=== PATIENT | male | born 1960 | race Asian ===

== ENCOUNTER 2022-12-27 18:14 | Inpatient (IN) | payer MEDICAID ==
[~2022-12-27] VITALS: Ht 175.3 cm; Wt 81.8 kg
[2022-12-27 18:14] VITALS: BP_SYST 167
--- NOTE | 2022-12-27 18:14 | NUR ---
BROUGHT IN BY [facility] AND PLACED IN BED #3, REPORT GIVEN TO OSMANI
--- NOTE | 2022-12-27 18:16 | NUR ---
Patient to ER bed 03 to gown for evaluation. Side rails up.
--- NOTE | 2022-12-27 18:18 | NUR ---
Pt brought by self , A&Ox4,pt presents to ER with headache, chest wall pain and high blood pressure, pt states he has been sick for one month, skin pink and warm, cap refill <3, VSS, respirations even and unlabored,will cont to monitor.
[2022-12-27] MEDS ORDERED: NITROGLYCERIN 1 INCH (GM) OINT. TP ONE (18:30)
[2022-12-27] MEDS ORDERED: LABETALOL HCL 20 MG/4 ML CARTRIDGE IVP ONE (18:30)
[2022-12-27 19:11] LABS: BASOPHILS % (AUTO) 0.5 % (0.0-2.0); EOSINOPHILS % (AUTO) 0.7 % (0.0-4.0); HEMATOCRIT 43.6 % (36-54); HEMOGLOBIN 14.7 g/dL (14.0-18.0); LYMPHOCYTES % (AUTO) 27.7 % (20.5-51.5); MEAN CORPUSCULAR HEMOGLOBIN 32 pg (27-31); MEAN CORPUSCULAR HGB CONC 34 % (32-36); MEAN CORPUSCULAR VOLUME 94 fL (79.0-98.0); MONOCYTES # (AUTO) 0.4 K/uL (0.0-1.0); MONOCYTES % (AUTO) 6.2 % (1.7-9.3); NEUTROPHILS # (AUTO) 4.6 K/uL (1.8-7.7); NEUTROPHILS % (AUTO) 64.9 % (40.0-70.0); PLATELET COUNT (AUTO) 218 K/uL (130-430); RED BLOOD CELL COUNT(AUTO) 4.62 MIL/uL (4.2-6.2); RED CELL DISTRIBUTION WIDTH 13.1 % (9.0-15.0); WHITE BLOOD COUNT (AUTO) 7.1 K/uL (4.8-10.8)
--- NOTE | 2022-12-27 19:30 | NUR ---
Pt is noted in bed alert, responsive as report is received from the off going nurse that pt came from home with c/o off high Blood Pressure and Diagnose is HTN with Blood Pressure now in the 176/107 , S/P Nitoglycre and Labetolol siddhartha been given as well. Pt care continue as he is been monitor closely.
[2022-12-27 19:33] LABS: ALANINE AMINOTRANSFERASE 33 U/L (12-78); ALBUMIN 3.9 g/dL (3.4-4.8); ASPARTATE AMINOTRANSFERASE 31 U/L (10-37); CALCIUM 8.9 mg/dL (8.4-11.0); CHLORIDE 101 mmol/L (98-107); CREATININE 1.61 mg/dL (0.55-1.30); GLUCOSE 94 mg/dL (70-99); TOTAL BILIRUBIN 0.6 mg/dL (0.0-1.0); UREA NITROGEN, BLOOD 29 mg/dL (8-21)
[2022-12-27 19:36] LABS: GFR AFRICAN AMERICAN 56 mL/min (>90)
[2022-12-27 19:43] LABS: ANION GAP 11 (5-15)
--- NOTE | 2022-12-27 20:02 | NUR ---
Labetalol 20mg IVP given as ordered. Pt care continue as he will be admit as ordered.
--- NOTE | 2022-12-27 20:20 | NUR ---
Admit bed requested Patient will be admitted to care of Dr. Quach Admitted to Telemetry unit. Diagnosis Hypertensive Urgency Inpatient (Yes or No) yes Observation (Yes or No) no Orientation concerns or request close to nursing station (Yes or No) no Covid Status pending On vent or bipap no Isolation requirements no Needs a sitter no From Home (Yes or if No enter name of facility) yes Requires Dialysis (Yes or No) no Med Rec Completed (Yes of No) yes
[2022-12-27] MEDS ORDERED: ACETAMINOPHEN 325 MG TABLET PO PRN ×2 (20:45)
[2022-12-27] MEDS ORDERED: DOCUSATE SODIUM 100 MG CAPSULE PO PRN (20:45)
[2022-12-27] MEDS ORDERED: cloNIDine HCL 0.2 MG TABLET PO PRN (20:45)
[2022-12-27] MEDS ORDERED: POTASSIUM CHLORIDE 20 MEQ TAB.PRT.SR PO PRN (20:45)
[2022-12-27] MEDS ORDERED: ONDANSETRON HCL 4 MG/2 ML VIAL IVP PRN (20:45)
[2022-12-27] MEDS ORDERED: LORazepam 2 MG/ML VIAL IVP PRN (20:45)
[2022-12-27] MEDS ORDERED: ZOLPIDEM TARTRATE 5 MG TABLET PO PRN (20:45)
[2022-12-27] MEDS ORDERED: MORPHINE 2 MG/ML INJ. SYRINGE IVP PRN ×2 (20:45)
[2022-12-27] MEDS ORDERED: MUPIROCIN 2% TOPICAL OINTMENT 22 GM NS PRN (20:45)
[2022-12-27] MEDS ORDERED: MAGNESIUM SULFATE 50 ML IV PRN (20:45)
--- NOTE | 2022-12-27 21:05 | NUR ---
Chanda sent to LAB as awaits Bed for admission
--- NOTE | 2022-12-27 21:08 | NUR ---
Pt is been admitted as report is given to the receiving nurse.
--- NOTE | 2022-12-27 21:11 | NUR ---
Received report at this time. Assignment changed. First contact. Pt presently on monitor.
[2022-12-27] MEDS ORDERED: CLON0.1T PO (21:19)
[2022-12-27] MEDS ORDERED: LOSA100T3 PO (21:19)
[2022-12-27] MEDS ORDERED: MELA1TAB21 PO (21:19)
[2022-12-27] MEDS ORDERED: HYDROCHLOROTHIAZIDE 25 MG TABLET (HCTZ) PO ONE (21:30)
[2022-12-27] MEDS: NACL 0.9% 1,000 ML IV SCH (22:00)
--- NOTE | 2022-12-28 00:39 | NUR ---
Patient will be admitted to care of Linda Quinones. Admitted to tele unit. Will go to room 116 bed B. Belongings list completed. Complete and up to date summary report printed. SBAR report given at bedside to TOMMY Covarrubias with opportunity for questions.
--- NOTE | 2022-12-28 00:45 | NUR ---
ADMIT NOTE Received pt from ER to the floor with a diagnosis of hypertensive urgency. Admission process initiated. Patient oriented to pain management, safety and call light-teach back done. Patient AOx4, currently denies pain. Safety precautions in place.
[2022-12-28 00:59] VITALS: BP_SYST 147
[2022-12-28 04:15] VITALS: BP_SYST 137
--- NOTE | 2022-12-28 04:25 | NUR ---
New 22G IV placed to right forearm. Patient tolerated well. IV fluids infusing as ordered. BP 137/85.
--- NOTE | 2022-12-28 05:00 | NUR ---
Urine sample collected and sent to lab.
[2022-12-28] MEDS: NACL 0.9% 1,000 ML IV SCH (05:20)
--- NOTE | 2022-12-28 05:43 | NUR ---
Patient stable through night, no complaint of pain. SBP in 130s-140s, HR 50s-60s. IV fluids infusing as ordered. Patient AOx4. Reported that he has not been sleeping well for the last month and that he takes melatonin each night but it doesn't help. Given Ambien PRN. Patient woke up several times during night but did sleep a few hours. Uses urinal. Instructed to call for help if needed or if he starts to feel chest pain or headache. Call light in reach, bed low and locked.
[2022-12-28 05:47] LABS: BARBITURATE, URINE NEGATIVE (NEG <=200); BENZODIAZEPINE, URINE NEGATIVE (NEG <=150); CANNABINOID, URINE NEGATIVE (NEG <=50); COCAINE, URINE NEGATIVE (NEG <=150); METHAMPHETAMINES SCREEN,URINE NEGATIVE (NEG <=500); OPIATE, URINE NEGATIVE (NEG <=100); PHENCYCLIDINE SCREEN,URINE NEGATIVE (NEG <=25); UR TRICYCLIC ANTIDEPRESSANTS NEGATIVE (NEG <=300); URINE AMPHETAMINE NEGATIVE (NEG <=500); URINE METHADONE NEGATIVE (NEG <=200); URINE OXYCODONE SCREEN NEGATIVE (NEG <=100); URINE PROPOXYPHENE SCREEN NEGATIVE (NEG <=300)
[2022-12-28 08:00] VITALS: BP_SYST 135
--- NOTE | 2022-12-28 08:00 | NUR ---
Start of shift. Pt sitting up in bed eating his breakfast. Tele unit attached and intact at this time. Bed in low position and bed alarm on. Side rails raised and IV in right forearm intact and patent. Pt stable. Call light within reach.
[2022-12-28] MEDS ORDERED: TRAM50TA2 PO ×3 (08:05→10:49)
[2022-12-28] MEDS ORDERED: HYDR50TA4 PO (08:05)
[2022-12-28 08:08] LABS: CALCIUM 8.7 mg/dL (8.4-11.0); CREATININE 1.52 mg/dL (0.55-1.30)
[2022-12-28 08:09] LABS: BASOPHILS % (AUTO) 0.4 % (0.0-2.0); EOSINOPHILS # (AUTO) 0.1 K/uL (0.0-0.4); EOSINOPHILS % (AUTO) 1.3 % (0.0-4.0); HEMATOCRIT 41.7 % (36-54); HEMOGLOBIN 14.3 g/dL (14.0-18.0); LYMPHOCYTES # (AUTO) 1.9 K/uL (1.0-5.5); LYMPHOCYTES % (AUTO) 27.5 % (20.5-51.5); MEAN CORPUSCULAR HEMOGLOBIN 32 pg (27-31); MEAN CORPUSCULAR HGB CONC 34 % (32-36); MEAN CORPUSCULAR VOLUME 94 fL (79.0-98.0); MONOCYTES # (AUTO) 0.5 K/uL (0.0-1.0); MONOCYTES % (AUTO) 6.9 % (1.7-9.3); NEUTROPHILS # (AUTO) 4.4 K/uL (1.8-7.7); NEUTROPHILS % (AUTO) 63.9 % (40.0-70.0); PLATELET COUNT (AUTO) 204 K/uL (130-430); RED BLOOD CELL COUNT(AUTO) 4.46 MIL/uL (4.2-6.2); RED CELL DISTRIBUTION WIDTH 12.9 % (9.0-15.0); WHITE BLOOD COUNT (AUTO) 6.8 K/uL (4.8-10.8)
[2022-12-28] MEDS ORDERED: amLODIPine BESYLATE 10 MG TABLET PO SCH (09:00)
[2022-12-28] MEDS ORDERED: HYDROCHLOROTHIAZIDE 25 MG TABLET (HCTZ) PO SCH (09:00)
[2022-12-28] MEDS ORDERED: ASPIRIN 81 MG TABLET(ECOTRIN) PO SCH (09:00)
--- NOTE | 2022-12-28 10:31 | NUR ---
CONSULTATION PAGED REASON FOR CONSULTATION:CHEST PAIN WAS CONSULT CALLED?Y PERSON WHO WAS NOTIFIED:DANIELE CHÁVEZ CONSULTING PHYSICIAN:DANIELE CHÁVEZ SENIOR BUDGET ANALYST SPECIALTY:CARDIO SENIOR BUDGET ANALYST PHONE NUMBER:[phone] REQUESTING PHYSICIAN:[facility]
[2022-12-28] MEDS ORDERED: PANTOPRAZOLE SODIUM 40 MG TAB PO ONE (10:45)
--- NOTE | 2022-12-28 10:45 | NUR ---
Note Pt states he is having chest discomfort radiating to mid back. Dr Quach was paged and MD was notified of pt's symptoms. MD has put in orders for pt's chest discomfort and was at bedside speaking to pt and assessing pt again. (Dr Quach was at pt's bedside at 08am this am).
--- NOTE | 2022-12-28 11:00 | NUR ---
CT of chest Pt off the floor via wheelchair to CT dept for scan via wheelchair.
[2022-12-28 11:53] VITALS: BP_SYST 135
--- NOTE | 2022-12-28 12:25 | NUR ---
MD DR GARZA CLEARED PATIENT FOR DISCHARGE
[2022-12-28 14:26] VITALS: BP_SYST 137
--- NOTE | 2022-12-28 16:00 | NUR ---
Note Pt's tele unit was dc'd and returned to campus monitor. Pt's IV was dc'd on right forearm - site benign, no redness/swelling/bleeding noted at this time. Pt dressed in street clothes and packed all belongings. Pt able to ambulate. Pt checked side table and drawers for belongings. Pt stable. Pt's daughter Radha came to pick pt. Pt off the floor via wheelchair with all belongings to car. No chest pain/discomfort was noted.
[2022-12-29] MEDS ORDERED: PANTOPRAZOLE SODIUM 40 MG TAB PO SCH (09:00)
== END 2022-12-28 15:55 | disposition home or self-care (01) | DRG 199 ==
LOC: SED 18:14 → STU 20:16
PROVIDERS: ADMIT General Practice; ATTEND General Practice
DX: I16.0 Hypertensive urgency (principal); N17.0 Acute kidney failure with tubular necrosis; F41.9 Anxiety disorder, unspecified; I10 Essential (primary) hypertension; F51.04 Psychophysiologic insomnia; M54.9 Dorsalgia, unspecified; Z20.822 Contact with and (suspected) exposure to COVID-19; G89.29 Other chronic pain; Z79.899 Other long term (current) drug therapy
CPT/HCPCS: 36415; 71045; 71250-TC; 76376; 80048; 80053; 80307; 83037; 83735; 83880; 84443; 84484; 85025; 93005; 99291; G0378